=== PATIENT | female | born 1960 | race Caucasian/White ===

== ENCOUNTER 2016-11-06 14:11 | Emergency (ER) | payer OTHER ==
[~2016-11-06] VITALS: Ht 152.4 cm; Wt 77.1 kg
[2016-11-06] MEDS ORDERED: LISINOPRIL40 MG PO (14:15)
[2016-11-06 15:34] VITALS: BP 154/103
== END 2016-11-06 15:35 | disposition home or self-care (01) ==
LOC: ER 14:11
DX: R04.0 Epistaxis (principal); I10 Essential (primary) hypertension